=== PATIENT | female | born 1950 | race Caucasian/White ===

== ENCOUNTER 2017-11-29 08:45 | Day surgery (SDC) | payer MEDICARE ==
[~2017-11-29] VITALS: Ht 157.5 cm; Wt 54.0 kg
[~2017-11-29 08:45] MED LIST: ALBU18HF INH; DIAZ5TAB4 PO; FINA5TAB PO; FLUT1DIS IH; IBAN150T PO; IPRA30SP NAS; LATA2.5D3 EACHEYE; LEVO200T PO; LIOT5TAB3 PO; PROG100C16 PO; TAMS0.4C2 PO; TRIA1TAB3 PO; VALA500T4 PO
[2017-11-29] MEDS ORDERED: LACTATED RINGERS 1,000 ML IV SCH (09:18)
[2017-11-29 09:24] VITALS: BP 124/81
[2017-11-29] MEDS ORDERED: PROPOFOL 10 MG/ML, 20ML ONE (10:21)
[2017-11-29] MEDS ORDERED: MIDAZOLAM 1 MG/ML, 5ML ONE (10:21)
[2017-11-29] MEDS ORDERED: LIDOCAINE-MPF 2% ,5ML ONE ×2 (10:22)
[2017-11-29] MEDS ORDERED: MEPERIDINE/PF 25MG/0.5ML IVPush PRN (10:30)
[2017-11-29] MEDS ORDERED: ONDANSETRON 2MG/ML, 2ML IVPush PRN (10:30)
[2017-11-29] MEDS ORDERED: FENTANYL PF 100 MCG/2ML IV PRN (10:30)
[2017-11-29] MEDS ORDERED: ACETAMINOPHEN 325 MG TABLET PO PRN (10:30)
[2017-11-29] MEDS ORDERED: morphine SULFATE 10 MG/ML, 1ML IV PRN (10:30)
[2017-11-29] MEDS ORDERED: ONDANSETRON 2MG/ML, 2ML ONE (10:31)
[2017-11-29] MEDS ORDERED: DEXAMETHASONE 4 MG/ML, 1ML ONE ×2 (10:31→10:32)
[2017-11-29] MEDS ORDERED: FENTANYL PF 100 MCG/2ML ONE (10:39)
[2017-11-29] MEDS ORDERED: CEFAZOLIN 1,000 MG ONE (10:43)
[2017-11-29] MEDS ORDERED: DIAZEPAM 5 MG TABLET PO PRN (11:30)
[2017-11-29] MEDS ORDERED: VALACYCLOVIR 500MG TABLET PO PRN (11:30)
[2017-11-29] MEDS ORDERED: LATANOPROST OPHTH 0.005%, 2.5ML EACHEYE SCH (21:00)
[2017-11-29] MEDS ORDERED: IPRATROPIUM NASAL 0.03%, 30ML NAS SCH (21:00)
[2017-11-29] MEDS ORDERED: PROGESTERONE 100 MG CAPSULE PO SCH (21:00)
[2017-11-29] MEDS ORDERED: TAMSULOSIN 0.4 MG CAP.ER.24H PO SCH (21:00)
[2017-11-30] MEDS ORDERED: LEVOTHYROXINE 200 MCG TABLET PO SCH (06:00)
[2017-11-30] MEDS ORDERED: TRIAMTERENE-HCTZ 37.5/25 MG TABLET PO SCH (09:00)
[2017-11-30] MEDS ORDERED: LIOTHYRONINE 5 MCG TABLET PO SCH (09:00)
== END 2017-11-29 13:15 ==
LOC: OUT 08:45
PROVIDERS: ATTEND Urology
DX: N35.9 Urethral stricture, unspecified (principal); J45.909 Unspecified asthma, uncomplicated; Z91.040 Latex allergy status; Z87.891 Personal history of nicotine dependence; Z88.5 Allergy status to narcotic agent; Z88.8 Allergy status to other drugs, medicaments and biological substances; Z87.39 Personal history of other diseases of the musculoskeletal system and connective tissue
CPT/HCPCS: 52281; 93005; J0690; J1100; J2250; J2405; J2704; J3010; J3490; J7120

== ENCOUNTER → 2018-06-29 | Outpatient (CLI) | payer MEDICARE | END | disposition home or self-care (01) | LOC: CARD 14:41 | PROVIDERS: ATTEND Psychiatry & Neurology Neurology | DX: G24.3 Spasmodic torticollis (principal); E03.9 Hypothyroidism, unspecified; I63.9 Cerebral infarction, unspecified; H81.03 Meniere's disease, bilateral | CPT/HCPCS: 95867 ==

== ENCOUNTER 2019-08-19 15:37 | Emergency (ER) | payer MEDICARE ==
[~2019-08-19] VITALS: Ht 157.5 cm; Wt 47.8 kg
[~2019-08-19 15:37] MED LIST changes: -IBAN150T PO; +IBAN150T15 PO; +LIOT5TAB11 PO; -LIOT5TAB3 PO
--- NOTE | 2019-08-19 16:26 | NUR ---
Pt presents to ED with c/o generalized weakness s/p using laxatives for constipation of 5- 6 days. Pt states relief of constipation. Pt states, "I fee like I am not fully emptying my bladder though." Pt ambulates SBA to restroom with EDRN with steady gait and balance. NADN. No other needs expressed. UA cup provided.
[2019-08-19 16:28] LABS: BASOPHILS # (AUTO) 0.02 x10^3/uL (0-0.1); BASOPHILS % (AUTO) 0 % (0-1); EOSINOPHILS # (AUTO) 0.06 x10^3/uL (0-0.4); EOSINOPHILS % (AUTO) 1 % (1-7); LYMPHOCYTES # (AUTO) 1.14 x10^3/uL (1-3.4); LYMPHOCYTES % (AUTO) 15 % (22-44); MD NO; MEAN CORPUSCULAR HGB CONC 33.5 g/dL (32.4-35.8); MEAN CORPUSCULAR VOLUME 101.5 fL (80-100); MEAN PLATELET VOLUME 7.9 fL (7.4-10.4); MONOCYTES # (AUTO) 0.51 x10^3/uL (0.2-0.8); MONOCYTES % (AUTO) 7 % (2-9); NEUTROPHILS % (AUTO) 77 % (42-75); PLATELET COUNT 299 x10^3/uL (130-400); RED BLOOD COUNT 4.74 x10^6/uL (3.82-5.3); RED CELL DISTRIBUTION WIDTH 14.2 % (9.6-15.2)
[2019-08-19] MEDS ORDERED: SODIUM CHLORIDE 0.9% 1,000ML IVBOLUS ONE (16:30)
[2019-08-19] MEDS ORDERED: SODIUM CHLORIDE FLUSH 10ML SYR IVF ONE (16:30)
[2019-08-19 16:33] LABS: ALANINE AMINOTRANSFERASE 39 U/L (12-78); ALBUMIN 3.8 g/dL (3.4-5.0); ANION GAP 6 mmol/L (5-15); CALCIUM 8.9 mg/dL (8.5-10.1); CHLORIDE 106 mmol/L (98-107); CREATININE 0.75 mg/dL (0.55-1.02)
[2019-08-19 16:38] LABS: ALKALINE PHOSPHATASE 61 U/L (45-117); BILIRUBIN,TOTAL 0.6 mg/dL (0.2-1.0); TOTAL PROTEIN 7.6 g/dL (6.4-8.2); TROPONIN I < 0.015 ng/mL (0.000-0.045)
[2019-08-19 17:06] LABS: MICROSCOPIC NOT IND
[2019-08-19 17:10] LABS: CULTURE INDICATED? NO
--- NOTE | 2019-08-19 17:22 | NUR ---
Pt ambulates with steady gait and balance. SHASTA. Pt provided urine sample. PT back to [facility] connected to NIBP cuff, continous pulse ox monitor, and monitoring analyst. Bedrail up x 1 and call light within reach.
--- NOTE | 2019-08-19 17:23 | NUR ---
Bladder scan shows 0 mL of urine left after pt urinated.
[2019-08-19] MEDS ORDERED: POTASSIUM CHLORIDE 20 MEQ TAB.ER.PRT ONE (17:26)
[2019-08-19] MEDS ORDERED: POTASSIUM CHLORIDE 20 MEQ TAB.ER.PRT PO ONE (17:30)
--- NOTE | 2019-08-19 18:25 | NUR ---
Patient given discharge instructions and they have confirmed that they understand the instructions. Patient ambulatory with steady gait. Pt left with d/c paperwork and all personal belongings. NADN. No other needs expressed.
[2019-08-19 18:28] VITALS: BP 135/69
== END 2019-08-19 18:30 | disposition home or self-care (01) ==
LOC: ED 18:24
DX: R53.1 Weakness (principal); E87.6 Hypokalemia; R19.7 Diarrhea, unspecified; R39.15 Urgency of urination; R42 Dizziness and giddiness; R55 Syncope and collapse
CPT/HCPCS: 36415; 71045; 80053; 81003; 83735; 84484; 85025; 93005; 96360; 99284; J7030

== ENCOUNTER 2020-05-27 19:31 | Emergency (ER) | payer MEDICARE ==
[~2020-05-27] VITALS: Ht 162.6 cm; Wt 50.0 kg
[2020-05-27] MEDS ORDERED: ASPIRIN 81 MG TABLET CHEW ONE (20:51)
[2020-05-27 20:53] LABS: BASOPHILS # (AUTO) 0.03 x10^3/uL (0-0.1); BASOPHILS % (AUTO) 0 % (0-1); EOSINOPHILS # (AUTO) 0.11 x10^3/uL (0-0.4); EOSINOPHILS % (AUTO) 1 % (1-7); LYMPHOCYTES # (AUTO) 1.43 x10^3/uL (1-3.4); LYMPHOCYTES % (AUTO) 18 % (22-44); MD NO; MEAN CORPUSCULAR HGB CONC 33.2 g/dL (32.4-35.8); MEAN CORPUSCULAR VOLUME 102.4 fL (80-100); MEAN PLATELET VOLUME 7.6 fL (7.4-10.4); MONOCYTES # (AUTO) 0.57 x10^3/uL (0.2-0.8); MONOCYTES % (AUTO) 7 % (2-9); NEUTROPHILS % (AUTO) 73 % (42-75); PLATELET COUNT 226 x10^3/uL (130-400); RED BLOOD COUNT 4.78 x10^6/uL (3.82-5.3); RED CELL DISTRIBUTION WIDTH 15.4 % (9.6-15.2)
[2020-05-27] MEDS ORDERED: SODIUM CHLORIDE FLUSH 10ML SYR IVF ONE (21:00)
[2020-05-27] MEDS ORDERED: ASPIRIN 81 MG TABLET CHEW PO ONE (21:00)
[2020-05-27] MEDS ORDERED: BRIM5DRO2 LEFTEYE (21:02)
[2020-05-27 21:05] LABS: ALBUMIN 3.5 g/dL (3.4-5.0); ANION GAP 4 mmol/L (5-15); CALCIUM 8.3 mg/dL (8.5-10.1); CHLORIDE 103 mmol/L (98-107); CREATININE 0.68 mg/dL (0.55-1.02)
[2020-05-27 21:09] LABS: TROPONIN I < 0.015 ng/mL (0.000-0.045)
--- NOTE | 2020-05-27 21:34 | NUR ---
Pt amb w/ steady gait to rr. No immediate needs from pt. WCTM. Awaiting d/c instructions.
--- NOTE | 2020-05-27 21:50 | NUR ---
Report to Marcin charles.
[2020-05-27] MEDS ORDERED: METOPROLOL SUCCINATE 25 MG TAB.ER.24H PO STA (21:51)
[2020-05-27] MEDS ORDERED: METOPROLOL TARTRATE 25 MG TAB ONE (22:01)
--- NOTE | 2020-05-27 22:28 | NUR ---
Pt provided with Metoprolol prior to DC
[2020-05-27 22:29] VITALS: BP 134/78
== END 2020-05-27 22:31 | disposition home or self-care (01) ==
LOC: ED 22:16
DX: R07.2 Precordial pain (principal); R11.2 Nausea with vomiting, unspecified; E03.9 Hypothyroidism, unspecified; K21.9 Gastro-esophageal reflux disease without esophagitis; Z90.49 Acquired absence of other specified parts of digestive tract
CPT/HCPCS: 36415; 71045; 80048; 82040; 84484; 85025; 93005; 99285

== ENCOUNTER 2020-06-16 10:01 | Day surgery (SDC) | payer MEDICARE ==
[~2020-06-16] VITALS: Ht 157.5 cm; Wt 54.0 kg
[~2020-06-16 10:01] MED LIST changes: +BRIM5DRO2 LEFTEYE
[2020-06-16] MEDS ORDERED: SODIUM CHLORIDE 0.9% 1,000 ML IV SCH ×2 (10:10→12:18)
[2020-06-16] MEDS ORDERED: DIPHENHYDRAMINE 50 MG/ML, 1ML ONE (10:19)
[2020-06-16] MEDS ORDERED: DIPHENHYDRAMINE 50 MG/ML, 1ML IVPush ONE (10:30)
[2020-06-16] MEDS ORDERED: PLEASE ENTER HEIGHT AND WEIGHT MC SCH (10:30)
[2020-06-16] MEDS ORDERED: PANT40TA3 PO (10:45)
[2020-06-16] MEDS ORDERED: CYCL1DRO EACHEYE (10:46)
[2020-06-16 10:58] LABS: MEAN CORPUSCULAR HGB CONC 33.2 g/dL (32.4-35.8); MEAN CORPUSCULAR VOLUME 102.5 fL (80-100); MEAN PLATELET VOLUME 7.7 fL (7.4-10.4); PLATELET COUNT 219 x10^3/uL (130-400); RED BLOOD COUNT 4.73 x10^6/uL (3.82-5.3); RED CELL DISTRIBUTION WIDTH 14.8 % (9.6-15.2)
[2020-06-16 11:03] LABS: ANION GAP 8 mmol/L (5-15); CALCIUM 9.4 mg/dL (8.5-10.1); CHLORIDE 107 mmol/L (98-107); CREATININE 0.66 mg/dL (0.55-1.02)
[2020-06-16 11:06] LABS: MD YES
[2020-06-16 11:11] LABS: BAND#(MANUAL) 0.05 x10^3/uL; BANDS%(MANUAL) 1 % (0-7); EOS#(MANUAL) 0.11 x10^3/uL (0.0-0.4); EOS% (MANUAL) 2 % (1-7); LYMPH#(MANUAL) 1.08 x10^3/uL (1-3.4); LYMPHS% (MANUAL) 20 % (22-44); MONOS#(MANUAL) 0.38 x10^3/uL (0.3-2.7); MONOS% (MANUAL) 7 % (2-9); REACTIVE LYMPHS # (MANUAL) 0.11 x10^3/uL (0-0); REACTIVE LYMPHS % (MANUAL) 2 % (0-0); SEG#(MANUAL) 3.67 x10^3/uL (1.8-6.8); SEGS% (MANUAL) 68 % (42-75)
[2020-06-16 11:12] LABS: <PLATELET ESTIMATE> ADEQUATE; <PLT MORPHOLOGY> NORMAL PLT MORPH; <RBC MORPHOLOGY> NORMAL
[2020-06-16] MEDS ORDERED: MIDAZOLAM 1 MG/ML, 5ML ONE (11:29)
[2020-06-16] MEDS ORDERED: VERAPAMIL 2.5 MG/ML, 2ML ONE (11:30)
[2020-06-16] MEDS ORDERED: FENTANYL PF 100 MCG/2ML ONE (11:30)
[2020-06-16] MEDS ORDERED: HEPARIN 1,000 UNITS/ML, 10ML ONE (11:30)
[2020-06-16] MEDS ORDERED: TICAGRELOR 90 MG TABLET ONE (11:30)
[2020-06-16] MEDS ORDERED: LIDOCAINE 2%, 20ML ONE (11:30)
[2020-06-16] MEDS ORDERED: BIVALIRUDIN 250 MG ONE (11:30)
[2020-06-16 13:08] LABS: ALBUMIN 3.8 g/dL (3.4-5.0); BILIRUBIN, DIRECT 0.1 mg/dL (0.1-0.2)
[2020-06-16 13:10] LABS: BILIRUBIN,INDIRECT 0.3 mg/dL (0.0-2.0); BILIRUBIN,TOTAL 0.4 mg/dL (0.2-1.0); TOTAL PROTEIN 7.6 g/dL (6.4-8.2)
[2020-06-16 13:13] LABS: CHOL/HDL RATIO 2.2; LDL/HDL RATIO 1.1 (0.5-3.0)
== END 2020-06-16 14:11 | disposition home or self-care (01) ==
LOC: CACL 10:01
PROVIDERS: ATTEND Internal Medicine Cardiovascular Disease
DX: I25.119 Atherosclerotic heart disease of native coronary artery with unspecified angina pectoris (principal); I10 Essential (primary) hypertension; J45.909 Unspecified asthma, uncomplicated; Z79.899 Other long term (current) drug therapy; Z87.891 Personal history of nicotine dependence; Z88.5 Allergy status to narcotic agent; Z88.8 Allergy status to other drugs, medicaments and biological substances; Z91.040 Latex allergy status
CPT/HCPCS: 36415; 80048; 80061; 80076; 85025; 93458; 99156; C1769; C1894; J1200; J1644; J2250; J3010; Q9967; J0583